=== PATIENT | male | born 1950 | race Caucasian/White ===

== ENCOUNTER 2016-12-07 05:54 | Day surgery (SDC) | payer BC ==
[2016-11-23 11:45] VITALS: BMI 38.0
--- NOTE | 2016-11-23 12:26 | PAT Medication Instructions ---
Service Date Nov 23, 2016. Current Home Medication List Acetaminophen (Tylenol Arthritis Ext Rel), 1,300 MG PO QAM Amlodipine (Norvasc), 2.5 MG PO QAM Aspirin (Aspirin Ec), 81 MG PO QAM B-Complex Vitamins (Vitamin B Complex), 1 TAB PO QAM Doxazosin Mesylate (Cardura), 4 MG PO QAM Labetalol (Normodyne), 200 MG PO BID Lisinopril (Zestril), 30 MG PO BID Loratadine (Claritin), 10 MG PO QAM Multivitamin (Multivitamin), 1 TAB PO QAM Naproxen (Naprosyn), 500 MG PO QAM Omeprazole (Prilosec), 20 MG PO DAILY PRN for STOMACH UPSET Potassium Citrate (Urocit-K), 1,080 MG PO BID Medication Instructions For Your Scheduled Surgery Naproxen (Naprosyn), 500 MG PO QAM (patient will check with surgeon for instructions) - Hold the following medications 7-10 days prior to surgery: Aspirin (Aspirin Ec), 81 MG PO QAM - Hold the following medications 24 hours prior to surgery: Lisinopril (Zestril), 30 MG PO BID (last dose should be 12/06/16 in the morning ) - Hold the following medications the morning of surgery: Potassium Citrate (Urocit-K), 1,080 MG PO BID Loratadine (Claritin), 10 MG PO QAM Multivitamin (Multivitamin), 1 TAB PO QAM B-Complex Vitamins (Vitamin B Complex), 1 TAB PO QAM - Take the following medications the morning of surgery with a sip of water: Omeprazole (Prilosec), 20 MG PO DAILY PRN for STOMACH UPSET Labetalol (Normodyne), 200 MG PO BID Doxazosin Mesylate (Cardura), 4 MG PO QAM Amlodipine (Norvasc), 2.5 MG PO QAM Acetaminophen (Tylenol Arthritis Ext Rel), 1,300 MG PO QAM (if needed) - Take the following medications as scheduled the night before surgery: Potassium Citrate (Urocit-K), 1,080 MG PO BID Labetalol (Normodyne), 200 MG PO BID If you have any questions please call us at [phone] or [phone] ( Marta) or [phone]
--- NOTE | 2016-11-23 13:28 | DIAGNOSTIC IMAGING REPORT ---
CHEST PREADMISSION(PA/LAT) CLINICAL HISTORY: PAT preoperative evaluation COMPARISON STUDY: No previous studies for comparison. FINDINGS: The bones soft tissues and hemidiaphragms are normal. The cardiomediastinal silhouette is normal. The lungs are clear. The pulmonary vasculature is normal. IMPRESSION: Negative chest. Electronically signed by: Bashir Mera M.D. 11/23/2016 1:26 PM Dictated Date/Time: 11/23/2016 1:26 PM
[2016-11-23 13:30] LABS: BASO % 0.4 %; BASO ABS # 0.02 K/uL (0-0.2); COMPLETE YES; HEMATOCRIT 37.5 % (42-52); LYMPH % 25.9 %; LYMPH ABS # 1.37 K/uL (1.2-3.4); MEAN CELL VOLUME 89.3 fL (80-100); MEAN CORPUSCULAR HEMOGLOBIN 31.4 pg (25-34); MEAN CORPUSCULAR HGB CONC 35.2 g/dl (32-36); MEAN PLATELET VOLUME 10.4 fL (7.4-10.4); MONO % 7.6 %; NEUT % 62.1 %; PLATELET COUNT 148 K/uL (130-400); WHITE BLOOD COUNT 5.28 K/uL (4.8-10.8)
[2016-11-23 14:11] LABS: BUN/CREATININE RATIO 14.8 (10-20); CALCIUM 9.4 mg/dl (8.5-10.1); POTASSIUM 3.9 mmol/L (3.5-5.1)
[~2016-12-07] VITALS: Ht 177.8 cm; Wt 120.6 kg
[~2016-12-07 05:54] MED LIST: ACET1TAB84 PO; AMLO2.5T PO; ASPI81TA28 PO; B-COTAB18 PO; CLR10 PO; DOXA4TAB2 PO; LABE1TAB28 PO; LISI1TAB3 PO; MULT-506 PO; NAPR-1169 PO; POTA1080 PO; PRLSR20 PO
[2016-12-07] MEDS ORDERED: LACTATED RINGER'S 1000ML 1,000 ML IV SCH (06:00)
[2016-12-07] MEDS ORDERED: CIPROFLOXACIN / D5W 400 MG IV SCH (06:00)
[2016-12-07 06:11] VITALS: BP 161/77; PULSE 74; TEMP 36.7; O2SAT 95; Ht 177.8 cm; Wt 120.6 kg
[2016-12-07] MEDS ORDERED: CIPR1TAB11 PO (06:19)
[2016-12-07] MEDS ORDERED: METH1TAB81 PO (06:19)
[2016-12-07] MEDS ORDERED: FENTANYL CITRATE INJ 50 MCG/1 ML 2 ML VIAL ONE ×2 (06:52→08:27)
[2016-12-07] MEDS ORDERED: MIDAZOLAM HCL 1 MG/ML 2ML VIAL ONE (06:52)
[2016-12-07] MEDS ORDERED: ONDANSETRON INJ 2 MG/ML 2 ML VIAL ONE (06:52)
[2016-12-07] MEDS ORDERED: PROPOFOL IV EMULSION 10 MG/ML 20 ML VIAL IV ONE (06:52)
[2016-12-07] MEDS ORDERED: DEXAMETHASONE SOD INJ 4 MG/ML VIAL ONE (06:52)
[2016-12-07] MEDS ORDERED: LIDOCAINE HCL 2% 2 ML VIAL (20MG/ML) ONE (06:52)
--- NOTE | 2016-12-07 06:58 | History & Physical Bridge Note ---
H&P Re-Evaluation Bridge Note: I have examined the patient, reviewed the History & Physical and in the interval since the performance of the History & Physical I have noted the following changes of clinical significance: No changes noted
[2016-12-07] MEDS ORDERED: CONRAY 60% 50 ML VIAL ONE (07:15)
[2016-12-07] MEDS ORDERED: NEOMYCIN/POLYMYX/BACITR OINT 15 GM TUBE ONE (07:16)
--- NOTE | 2016-12-07 07:34 | History & Physical Bridge Note ---
H&P Re-Evaluation Bridge Note: We discussed the placement of SpaceOAR hydrogel for utilization with radiation therapy for treatment of prostate cancer. We did review the evidence based literature and the potential benefit with reducing rectal toxicity from radiation therapy. We did review the potential options for placing the hydrogel spacer including having it done as an outpatient procedure as well as being done in the operative room. We did explain reviewed the risks which are including, but not limited to, infection, bleeding, fistula formation, difficulty with urination, difficulty with bowel movements, rectal perforation, nerve damage, hematoma formation, hemorrhage, numbness, paralysis. The patient understands and has obtained consent today prior to the procedure I have examined the patient, reviewed the History & Physical and in the interval since the performance of the History & Physical I have noted the following changes of clinical significance: No changes noted
[2016-12-07] MEDS ORDERED: EpHEDrine SULFATE INJ 50 MG/ML AMP IV PRN (09:30)
[2016-12-07] MEDS ORDERED: ONDANSETRON INJ 2 MG/ML 2 ML VIAL IV PRN (09:30)
[2016-12-07] MEDS ORDERED: ATROPINE SULFATE 0.1 MG/ML 5ML SYR IV PRN (09:30)
[2016-12-07] MEDS ORDERED: FENTANYL CITRATE INJ 50 MCG/1 ML 2 ML VIAL IV PRN (09:30)
--- NOTE | 2016-12-07 10:13 | [facility] Post Operative Brief Note ---
Immediate Operative Summary Operative Date Dec 07, 2016. Pre-Operative Diagnosis Prostate cancer Post-Operative Diagnosis Prostate cancer Procedure(s) Performed Brachy Therapy Implant plus spaceOAR hydrogel Surgeon Dr Walter Teran and Dr Kenan Mesa Pin Worker Surgeon(s) None Estimated Blood Loss 5cc Findings small prostate Specimens None per surgeon Drains guillory Anesthesia general Complication(s) None Disposition Recovery Room / PACU
[2016-12-07] MEDS ORDERED: OXYC-57 PO (10:14)
--- NOTE | 2016-12-07 10:16 | Discharge Instructions ---
Discharge Instructions Date of Service Dec 07, 2016. Visit Reason for Visit: Prostate Cancer Discharge Discharge Diagnosis / Problem: Prostate cancer Discharge Goals Goal(s): Therapeutic intervention Activity Recommendations Activity Limitations: per Instructions/Follow-up section (see radiation saftey sheet you got in radiaton oncology take it easy today) Anesthesia . Post Anesthesia Instructions: If you have had General Anesthesia or IV Sedation: * Do not drive today. * Resume driving when surgeon permits. * Do not make important decisions or sign legal documents today. * Call surgeon for: 1. Temperature elevations greater than 101 degrees F. 2. Uncontrollable pain. 3. Excessive bleeding. 4. Persistent nausea and vomiting. 5. Medication intolerance (nausea, vomiting or rash). * For nausea and vomiting use only clear liquids such as: tea, soda, bouillon until nausea subsides, then gradually increase diet as tolerated. * If you have any concerns or questions, call your surgeon's office. If physician is unavailable and it is an emergency, call 911 or go to the nearest emergency room. . Diet Recommendations Recommended Home Diet: resume previous diet Procedures Procedures Performed: Brachy Therapy Implant plus spaceOAR hydrogel and urethral dilitation Pending Studies Studies pending at discharge: no Medical Emergencies . Who to Call and When: Medical Emergencies: If at any time you feel your situation is an emergency, please call 911 immediately. . Non-Emergent Contact Non-Emergency issues call your: Urologist . . "Provider Documentation" section prepared by Walter Teran. [facility] Drug Monitoring Program Search Results: patient reviewed within database
[2016-12-07] MEDS ORDERED: OXYCODONE/ACETAMINOPHEN 5-325 TAB PO PRN (10:30)
--- NOTE | 2016-12-07 10:32 | DIAGNOSTIC IMAGING REPORT ---
FLUOROSCOPIC IMAGE OF THE PELVIS CLINICAL HISTORY: BRACHYTHERAPY COMPARISON STUDY: No previous studies for comparison. Fluoroscopy time: 4.4 seconds. FINDINGS: A single AP image of the pelvis demonstrates brachytherapy seeds projecting over the expected region of the prostate. There is a catheter within the bladder which contains contrast. IMPRESSION: Expected findings following placement of brachytherapy seeds. Electronically signed by: Gavin Malagon M.D. 12/07/2016 10:31 AM Dictated Date/Time: 12/07/2016 10:30 AM
--- NOTE | 2016-12-07 10:59 | Anesthesiology Progress Note ---
Anesthesia Post Op Note Date & Time Dec 07, 2016 at 10:59 Vital Signs Pain Intensity: 0 Vital Signs Past 12 Hours Date Time Temp Pulse Resp B/P Pulse Ox O2 Delivery O2 Flow Rate FiO2 12/07/16 10:50 36.4 80 10 172/89 94 Room Air 12/07/16 10:40 77 15 158/83 96 Room Air 12/07/16 10:30 68 10 150/82 99 Mask 10 12/07/16 10:20 74 10 148/85 99 Mask 10 12/07/16 10:12 36.4 64 10 172/95 99 Mask 10 12/07/16 06:11 36.7 74 18 161/77 95 Room Air Notes Mental Status: alert / awake / arousable, participated in evaluation Pt Amnestic to Procedure: Yes Nausea / Vomiting: adequately controlled Pain: adequately controlled Airway Patency, RR, SpO2: stable & adequate BP & HR: stable & adequate Hydration State: stable & adequate Anesthetic Complications: no major complications apparent
[2016-12-07 11:10] VITALS: BP 160/85; PULSE 78; TEMP 36.6; O2SAT 93
[2016-12-07 11:40] VITALS: BP 152/73; PULSE 79; O2SAT 98
[2016-12-07 12:10] VITALS: BP 149/65; PULSE 79; TEMP 36.6; O2SAT 97
--- NOTE | 2016-12-08 16:15 | OPERATIVE REPORT ---
DATE OF OPERATION: 12/07/2016 PREOPERATIVE DIAGNOSIS: PSA 8.06, biopsy stage T2b, Jelm 3+4, adenocarcinoma of the prostate. POSTOPERATIVE DIAGNOSIS: PSA 8.06, biopsy stage T2b, Jelm 3+4, adenocarcinoma of the prostate. PROCEDURE: Transperineal prostate brachytherapy with live dosimetry. FINDINGS: 29.5 mL gland. SURGEON: Dr. Teran. PHYSICIST: Félix Lay. RADIATION ONCOLOGIST: Dr. Mesa. ANESTHESIA: General. DRAINS: Temporary Daniel catheter in the bladder. COMPLICATIONS: None. SPECIMENS: None. INDICATIONS: The patient has been diagnosed with an adenocarcinoma of the prostate and has elected to undergo transperineal brachytherapy as part of his treatment and is being brought in now for the procedure. OPERATION AND FINDINGS: The patient was correctly identified and brought to the outpatient surgery suite. After the induction of an adequate level of anesthesia, the patient was placed in the dorsal lithotomy position. The patient's lower abdomen, genitalia, and perineum were then prepped with Hibiclens. A Daniel catheter was then inserted per the urethra into the bladder using usual sterile technique and the urine was drained and then 100 mL of mixture of saline and iodinated contrast material was instilled through the Daniel into the bladder. Aerated gel was then placed within the lumen of the catheter, and the catheter was then plugged. The patient's scrotum was then taped upward using a Steri-Drape to keep it out of the way of the perineum. A transrectal ultrasound probe was then gently inserted into the patient's rectum and attached to the brachytherapy sled, and adjustments were made to the brachytherapy sled using the template projected on the ultrasound screen to get the transrectal probe and the image of the prostate into the proper position. After getting the probe adjusted properly, the prostate was scanned from its base to its apex with the images being transmitted to the treatment planning computer. While the radiation oncologist and physicist were performing a live implant plan, empty needles were placed through the template and positioned in the prostate around the entire periphery of the prostate. Each needle was spaced approximately 1 cm apart from its neighbor and again this was done circumferentially around the prostate. At this point, Dr. Mesa used a MARIA A applicator to place the seeds into the prostate through these peripherally placed needles with the number and position of the seeds based on the plan that had just been created. This was done live so live dosimetry was being calculated with each seed placement. After the peripheral seeds were placed and all the peripheral needles removed, the radiation oncologist and physicist then planned for the central needles and these needles were placed in their proper positions based on the plan. After completing this portion, again the case was turned over to Dr. Mesa for placement of the central seeds. A total number of 19 needles were used to implant 50 Cs-131 seeds. After completing the implant, a fluoroscopic image was taken to check to make sure that there were no seeds placed within the bladder and a final picture was taken of this. One final inspection was then done looking at the plan and the seed implant and after completion of this final inspection the transrectal probe was removed. The patient's bladder was drained through the Daniel catheter. A Thomas counter was used to check for any radioactivity remaining in the needles and in the urine. The Daniel catheter was left indwelling. The patient's perineum was then washed and dried, and an antibiotic ointment was applied. The patient tolerated the procedure well and was transferred to the Recovery Room in stable condition. The patient has a history of a urethral stricture and requested that he have urethral dilatation while he was under anesthesia so prior to doing the implant patient's phallus was prepped with Betadine and draped in a sterile fashion. Filiforms and followers were used to dilate the urethral stricture up to 24 Malagasy. The dilatation went easily and then the Daniel catheter was placed. At the end of the case Dr. Mesa did a SpaceOAR implant between the prostate and the rectum. He will dictate that part himself. I attest to the content of the Intraoperative Record and any orders documented therein. Any exceptio ns are noted below.
[2017-02-14] MEDS ORDERED: MONT1TAB3 PO (08:16)
== END 2016-12-07 12:11 | disposition home or self-care (01) ==
LOC: C.ACU 05:54
PROVIDERS: ATTEND Urology
DX: C61 Malignant neoplasm of prostate (principal)
CPT/HCPCS: 0438T; 55875

== ENCOUNTER → 2016-12-20 | Outpatient (CLI) | payer BC ==
[~2016-12-20] MED LIST changes: +CIPR1TAB11 PO; +METH1TAB81 PO; +MONT1TAB3 PO; +OXYC-57 PO
--- NOTE | 2017-03-03 07:43 | CODING QUERY NO DIAGNOSIS ---
: 1950 TREATMENT RENDERED WITHOUT A DIAGNOSIS To promote full compliance with coding requirements relating to patient care, physician participation is requested in all cases of recruitment advertising manager uncertainty. Please assist us with providing a diagnosis/symptom for the test(s) below: A diagnosis/symptom was not documented on your Order. A valid diagnosis/symptom is required to bill all insurances. Please remember that we are unable to code a diagnosis of rule out, probable, possible, questionable, or suspected. Tests that require a diagnosis: DOS: 12/20/16 Brachytx Isodose Complex DIAGNOSIS: Provider Signature: Date: Thank you Aisha Dangelo [facility] Health Information Management Once completed, please kindly fax back to [phone] For questions please call [phone]
== END | disposition home or self-care (01) ==
LOC: C.ONC 12:53
PROVIDERS: ATTEND Physician Assistant Medical
DX: Z51.0 Encounter for antineoplastic radiation therapy (principal); C61 Malignant neoplasm of prostate

== ENCOUNTER → 2017-01-12 | Outpatient (CLI) | payer BC ==
[~2017-01-12] MED LIST changes: -CIPR1TAB11 PO; -METH1TAB81 PO
--- NOTE | 2017-01-12 16:06 | DIAGNOSTIC IMAGING REPORT ---
MRI THE PELVIS WITHOUT CONTRAST SPACEOAR PROTOCOL CLINICAL HISTORY: Prostate cancer. COMPARISON STUDY: No previous studies for comparison. TECHNIQUE: Utilizing a 1.5 Zoe magnet, multiplanar, multiecho imaging of the pelvis was performed without IV contrast. FINDINGS: This exam is significantly compromised by susceptibility artifact related to the bilateral hip arthroplasties. However, T2 hyperintense material located between the rectum and prostate represents the hydrogel spacer which appears appropriately positioned. The rectum does not appear to contact the prostate. Note is made of fat-containing bilateral inguinal hernias. No lymphadenopathy shown within visualized portions of the pelvis. IMPRESSION: 1. Expected findings following placement of hydrogel spacer which appears appropriately positioned between the rectum and prostate. 2. Study compromised by artifact related to bilateral hip arthroplasties. Electronically signed by: Gavin Malagon M.D. 01/12/2017 4:05 PM Dictated Date/Time: 01/12/2017 3:57 PM
== END | disposition home or self-care (01) ==
LOC: C.MRI 14:29
PROVIDERS: ATTEND Radiology Radiation Oncology
DX: C61 Malignant neoplasm of prostate (principal)

== ENCOUNTER → 2017-05-18 | Outpatient (CLI) | payer BC ==
[2017-05-18 15:15] VITALS: BP 155/75; PULSE 63; TEMP 36.5; O2SAT 94
--- NOTE | 2017-05-18 16:07 | Radiation Oncology Follow-Up ---
Radiation Oncology Follow-Up Date of Visit May 18, 2017. Reason For Visit 2 month follow-up and cancer survivorship care plan Radiation Completion Date 03/10/17 Diagnosis (1) Prostate cancer Status: Acute Onset Date: 10/27/2015 Location: right lobe of the prostate Histology Subtype: adenocarcinoma Stage: ll Permanent Comment: Rising PSA, pretreatment PSA 8.060 Status post prostate biopsy October 27, 2015 at [facility] Adenocarcinoma Shattuck 3+4 with perineural invasion Repeat biopsy 07/08/2016 Shattuck 3+3 with perineural invasion Prostate volume 22.6 Prostate density 0.356 Oncotype DX score of 29 Status post prostate seed implant 12/07/2016, 50 seeds were placed, received 8500 cGy Placement of Space OAR Status post completion of IMRT/IGRT (VMAT) 03/10/2017 received 4500 cGy Last Edited By: Karen Moffett on Mar 21, 2017 15:07 History of Present Illness Mr. Ledezma is a 67-year-old male without a family history of prostate cancer. He has a history of multiple renal stones and is undergone 26 lithotripsy treatments. At the time of his most recent workup a repeat prostate-specific antigen was drawn by Dr. Jorge Bah, urologist at [facility]. This was elevated and was 5.72 on 10/01/2015.. Because of the rise in prostate-specific antigen Dr. Bah recommended ultrasound-guided biopsies. The patient agreed and these were scheduled and performed on 10/27/2015 area at that time a total of 13 biopsies were taken. The biopsy from the right peripheral base revealed a prostatic adenocarcinoma Shattuck grade 3+4 involving 50% of the core tissue sample with evidence of perineural invasion. Biopsy from the right peripheral apex revealed prostatic adenocarcinoma Shahid grade 3+4 involving 20% of the core tissue sample with evidence of perineural invasion. Therefore total of 2 out of 13 biopsies were positive with remaining negative. Patient chose to proceed with short-term active surveillance. He also wished to transfer his care from [place] to [place] for convenience of travel with the approval of Dr. Bah. Patient was therefore seen by Dr. Teran. Dr. Teran ordered a repeat prostate-specific antigen on 05/19/2016. This showed a heart increase to 8.06. Because of the jump in prostate-specific antigen Dr. Teran suggested repeat ultrasound- guided prostate biopsies. The patient agreed and on 07/08/2016 the patient underwent this procedure. A total of 14 biopsies were taken. All biopsies from the left gland were benign. Biopsy from the right base revealed a prostatic adenocarcinoma Shahid grade 3+3 seen in 2 out of 2 core samples involving 30% and 20% of the 2 core samples with evidence of perineural invasion seen. Biopsy from the right mid gland were positive for adenocarcinoma Shahid grade 3+3 involving 25% and 30% of the core tissue samples respectively with evidence of perineural invasion seen in 2 out of 2 samples. Biopsy from the right apex was positive for adenocarcinoma Shattuck grade 3+3 involving both core samples and 63 % 50% respectively with perineural invasion seen. Biopsies from the right anterior gland was positive for adenocarcinoma Shattuck grade 3+3 involving 50% of the core tissue sample with out evidence of perineural invasion. In the pathology comments the tissues from the right apex revealed glands that were markedly compressed lumen and twisted. In a few glands to lumen could not be detected. Thus a 0.15 cm segment of adenocarcinoma was felt to be precarious weekly close to Shattuck pattern 4. In fact it was just short of this pattern by the pathologist histologic assessment. This was felt to represent less than 5% of the tissue in sample after.. Perineural invasion was seen in multiple parts of this case. Case : [id number]. The options of treatment were reviewed with him and ultimately he made the decision to undergo prostate seed implant followed by IMRT/IGRT. Seed implant was 12/07/2016. 50 seeds were placed and he received 8500 cGy. He then had IMRT/IGRT. This was completed on 02/08/2017. He received 4500 cGy. Interim History His urinary status is stable over the past month. His AUA score at the end of treatment was 17. Today his AUA score is 17. We've previously discussed medication. He had been on medication and it did not help his urinary symptoms. He had declined medication throughout the treatment time. And he declines treatment with medication today. He completed expanded prostate cancer index composite for clinical practice and gave a score of 2 of 12 and urinary incontinence symptoms. He gave a score of 3 of 12 and urinary irritation symptoms. He gave a score of 0 of 12 bowel symptoms. He gave a score of 5 of 12 and sexual symptoms. He gave a score of 3 of 12 and hormonal vitality symptoms. His total was 13 of 60. Today he brought in correspondence from [facility]. He wished this to be reviewed by Dr. Mesa. Allergies Coded Allergies: Clopidogrel (Verified Allergy, Mild, HIVES, RASH ITCHY, 12/07/16) Iodinated Diagnostic Agents (Verified Allergy, Unknown, HIVES, 12/07/16) Home Medications Scheduled Acetaminophen (Tylenol Arthritis Ext Rel), 1,300 MG PO QAM Amlodipine (Norvasc), 2.5 MG PO QAM Aspirin (Aspirin Ec), 81 MG PO QAM B-Complex Vitamins (Vitamin B Complex), 1 TAB PO QAM Doxazosin Mesylate (Cardura), 4 MG PO QAM Labetalol (Normodyne), 200 MG PO BID Lisinopril (Zestril), 30 MG PO BID Loratadine (Claritin), 10 MG PO QAM Montelukast Sodium (Singulair), 1 TAB PO DAILY Multivitamin (Multivitamin), 1 TAB PO QAM Naproxen (Naprosyn), 500 MG PO QAM Potassium Citrate (Urocit-K), 1,080 MG PO BID Scheduled PRN Omeprazole (Prilosec), 20 MG PO DAILY PRN for STOMACH UPSET Oxycodone/Acetaminophen 5MG/325MG (Percocet 5MG/325MG), 1-2 TABLETS PO Q4H PRN for Pain Review of Systems Gastrointestinal: Symptoms: WNL Oral: Symptoms: No Problems Respiratory: Symptoms: WNL Urinary: Symptoms: Nocturia Comments: slow stream, urgency Physical Exam Vital Signs Date Time Temp Pulse Resp B/P (MAP) Pulse Ox O2 Delivery O2 Flow Rate FiO2 05/18/17 15:15 36.5 63 18 155/75 94 Pain: Patient Pain Scale: 0 - 10 Initial Pain Intensity: 0.0 Fatigue: None General Appearance: no apparent distress Eyes: normal inspection, EOMI ENT: normal ENT inspection, hearing grossly normal Respiratory/Chest: lungs clear, no respiratory distress, no accessory muscle use Cardiovascular: regular rate, rhythm, no gallop, no murmur Abdomen: non tender, soft Neurologic/Psychiatric: no motor/sensory deficits, alert, normal mood/affect Skin: warm/dry Laboratory Studies Test 05/18/17 15:54 Assessment & Plan Plan: Patient is also seen today by Dr. Mesa. The PSA was drawn. He'll then notified as to results. He has a recheck appointment with Dr. Teran scheduled for December. We will therefore have him return to our office in June. He'll be having recheck PSAs with each visit. Today we completed a cancer survivorship care plan. A copy of the document was given to the patient. He will call our office if he has any questions or concerns in the interim. A prescription for Flomax was again offered today. Patient will let us know if he would want the medication called in. He will also discuss this with Dr. Teran when he sees him in June. Assessment & Plan (Attending) I met with Mr. Ledezma and reviewed his recent AUA score. I discussed with him and his the anticipated change in prostate-specific antigen over time. We also talked about the possibility of starting medication for his persistently elevated AUA score of 17. The patient states that he takes many medications and would like to avoid additional medications. He understands that he could start this in the future if he wishes. A repeat prostate-specific antigen was drawn today. The result was 4.37. He will continue to be followed with repeat prostate-specific antigens every 6 months and we would anticipate continued gradual decrease to below 0.5. Patient will be notified of these results. Total Time In Follow-Up I spent 20 minutes speaking to the patient performing his examination. I spent 20 minutes reviewing information, preparing the survivorship document, and completing this note. Total Time (Attending) In Follow-Up I spent 10 minutes in discussion with the patient and his and 5 minutes reviewing his chart and preparation of this document. Copy To Michele Metcalf PA-C; Walter Teran MD
== END | disposition home or self-care (01) ==
LOC: C.ONC 15:05
PROVIDERS: ATTEND Physician Assistant Medical
DX: Z08 Encounter for follow-up examination after completed treatment for malignant neoplasm (principal); Z92.3 Personal history of irradiation; Z85.46 Personal history of malignant neoplasm of prostate